=== PATIENT | female | born 1975 | race Caucasian/White ===

== ENCOUNTER 2018-03-30 19:22 | Emergency (ER) | payer MEDICAID ==
[~2018-03-30] VITALS: Ht 170.2 cm; Wt 68.0 kg
[~2018-03-30 19:22] MED LIST: DIAZ5TAB PO; HYDR-565 PO; PANT20TA3 PO; TUMS
[2018-03-30] MEDS ORDERED: HYDROcodone/acetaminophen 5mg/325mg tablet PO ONE (21:00)
[2018-03-30] MEDS ORDERED: HYDR-569 PO (21:23)
[2018-03-30 21:38] VITALS: BP 125/89
== END 2018-03-30 21:41 | disposition home or self-care (01) ==
LOC: ER 19:22
DX: S93.401A Sprain of unspecified ligament of right ankle, initial encounter (principal); G43.909 Migraine, unspecified, not intractable, without status migrainosus; G89.29 Other chronic pain; Z88.2 Allergy status to sulfonamides; Z88.6 Allergy status to analgesic agent; Z88.5 Allergy status to narcotic agent; X50.1XXA Overexertion from prolonged static or awkward postures, initial encounter; Y93.89 Activity, other specified; Y92.89 Other specified places as the place of occurrence of the external cause; Y99.8 Other external cause status
CPT/HCPCS: 29515; 73590; 73610; 99284

== ENCOUNTER 2018-04-05 14:44 | Outpatient (CLI) | payer MEDICAID ==
[~2018-04-05 14:44] MED LIST changes: +HYDR-569 PO
[2018-04-05 14:47] VITALS: BP 108/69
== END 2018-04-05 16:01 | disposition home or self-care (01) ==
LOC: ORTHO 14:44
PROVIDERS: ATTEND Nurse Practitioner Family
DX: S93.491A Sprain of other ligament of right ankle, initial encounter (principal); M79.89 Other specified soft tissue disorders; Z88.2 Allergy status to sulfonamides; Z88.5 Allergy status to narcotic agent; Z88.8 Allergy status to other drugs, medicaments and biological substances; Z90.710 Acquired absence of both cervix and uterus; X58.XXXA Exposure to other specified factors, initial encounter; Y93.89 Activity, other specified; Y92.89 Other specified places as the place of occurrence of the external cause; Y99.8 Other external cause status
CPT/HCPCS: 73610; 73630; 99213; L4360

== ENCOUNTER 2018-04-29 11:10 | Outpatient (CLI) | payer MEDICAID ==
[2018-04-29 11:12] VITALS: BP 127/78
== END 2018-04-29 11:50 | disposition home or self-care (01) ==
LOC: ORTHO 11:10
PROVIDERS: ATTEND Nurse Practitioner Family
DX: S93.491D Sprain of other ligament of right ankle, subsequent encounter (principal); M79.89 Other specified soft tissue disorders; Z88.5 Allergy status to narcotic agent; Z88.2 Allergy status to sulfonamides; Z88.8 Allergy status to other drugs, medicaments and biological substances; Z90.711 Acquired absence of uterus with remaining cervical stump; X58.XXXD Exposure to other specified factors, subsequent encounter
CPT/HCPCS: 73610

== ENCOUNTER 2018-05-23 11:08 | Outpatient (CLI) | payer MEDICAID ==
[2018-05-23 11:07] VITALS: BP 106/69
[~2018-05-23 11:08] MED LIST changes: +HYDR-4353 PO; +HYDR-4383 PO; -HYDR-565 PO; -HYDR-569 PO
== END 2018-05-23 11:50 | disposition home or self-care (01) ==
LOC: ORTHO 11:08
PROVIDERS: ATTEND Nurse Practitioner Family
DX: S93.491D Sprain of other ligament of right ankle, subsequent encounter (principal); Z88.2 Allergy status to sulfonamides; Z88.5 Allergy status to narcotic agent; Z88.8 Allergy status to other drugs, medicaments and biological substances; Z90.711 Acquired absence of uterus with remaining cervical stump; X58.XXXD Exposure to other specified factors, subsequent encounter
CPT/HCPCS: 73610

== ENCOUNTER 2018-06-21 14:13 | Outpatient (CLI) | payer MEDICAID ==
[2018-06-21 14:07] VITALS: BP 114/68
== END 2018-06-21 15:37 | disposition home or self-care (01) ==
LOC: ORTHO 14:13
PROVIDERS: ATTEND Nurse Practitioner Family
DX: S93.411D Sprain of calcaneofibular ligament of right ankle, subsequent encounter (principal); Z90.711 Acquired absence of uterus with remaining cervical stump; Z98.890 Other specified postprocedural states; Z88.2 Allergy status to sulfonamides; Z88.6 Allergy status to analgesic agent; X58.XXXD Exposure to other specified factors, subsequent encounter
CPT/HCPCS: 99213

== ENCOUNTER 2018-08-02 13:15 | Outpatient (CLI) | payer MEDICAID ==
[2018-08-02 13:14] VITALS: BP 102/63
== END 2018-08-02 14:05 | disposition home or self-care (01) ==
LOC: ORTHO 13:15
PROVIDERS: ATTEND Nurse Practitioner Family
DX: S93.411D Sprain of calcaneofibular ligament of right ankle, subsequent encounter (principal); Z88.2 Allergy status to sulfonamides; Z88.5 Allergy status to narcotic agent; X58.XXXD Exposure to other specified factors, subsequent encounter
CPT/HCPCS: 99213

== ENCOUNTER 2018-08-30 13:36 | Outpatient (CLI) | payer MEDICAID ==
[2018-08-30 13:28] VITALS: BP 129/79
== END 2018-08-30 14:32 | disposition home or self-care (01) ==
LOC: ORTHO 13:36
PROVIDERS: ATTEND Nurse Practitioner Family
DX: S93.411D Sprain of calcaneofibular ligament of right ankle, subsequent encounter (principal); Z88.2 Allergy status to sulfonamides; Z88.5 Allergy status to narcotic agent; Z88.8 Allergy status to other drugs, medicaments and biological substances; X58.XXXD Exposure to other specified factors, subsequent encounter
CPT/HCPCS: 99213

== ENCOUNTER → 2018-09-27 | Outpatient (CLI) | payer MEDICAID ==
[2018-09-27 13:34] VITALS: BP 112/81
== END | disposition home or self-care (01) ==
LOC: ORTHO 13:21
PROVIDERS: ATTEND Nurse Practitioner Family
DX: S93.411D Sprain of calcaneofibular ligament of right ankle, subsequent encounter (principal); Z98.890 Other specified postprocedural states; Z88.2 Allergy status to sulfonamides; Z88.5 Allergy status to narcotic agent; Z88.6 Allergy status to analgesic agent; X50.1XXD Overexertion from prolonged static or awkward postures, subsequent encounter
CPT/HCPCS: 99213

== ENCOUNTER 2024-12-29 08:22 | Day surgery (SDC) | payer MEDICAID ==
[2024-12-21 14:46] LABS: BASOPHILS # (AUTO) 0.1 X10'3 (0-0.2); BASOPHILS % (AUTO) 0.5 % (0-1); EOSINOPHILS # (AUTO) 0.2 X10'3 (0-0.9); EOSINOPHILS % (AUTO) 1.5 % (0-6); LYMPHOCYTES # (AUTO) 1.6 X10'3 (1.1-4.8); LYMPHOCYTES % (AUTO) 15.2 % (21-51); MEAN CORPUSCULAR HEMOGLOBIN 29.1 PG (27.0-31.0); MEAN CORPUSCULAR HGB CONC 34.4 g/dL (33.0-36.5); MEAN CORPUSCULAR VOLUME 84.6 FL (78-98); MEAN PLATELET VOLUME 8.8 FL (7.4-10.4); MONOCYTES # (AUTO) 0.4 X10'3 (0-0.9); MONOCYTES % (AUTO) 4.2 % (2-12); NEUTROPHILS # (AUTO) 8.2 X10'3 (1.8-7.7); NEUTROPHILS % (AUTO) 78.6 % (42-75); PRE OP HEMATOCRIT 41.4 % (35.0-45.0); PRE OP HEMOGLOBIN 14.3 g/dL (12.0-16.0); PRE OP PLATELET COUNT 255 X10'3 (140-440); PRE OP WHITE BLOOD COUNT 10.5 10'3 (4.8-10.8); RED BLOOD COUNT 4.89 X10'6 (4.20-5.60); RED CELL DISTRIBUTION WIDTH 14.7 % (11.5-14.5)
--- NOTE | 2024-12-21 14:48 | ELECTROCARDIOGRAPH REPORT ---
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 JAN Russo Measurements Intervals [place] Rate: 75 P: 52 WA: 130 QRS: 51 QRSD: 94 T: 31 QT: 469 QTc: 524 Interpretive Statements Sinus rhythm Probable left atrial enlargement Low voltage, precordial leads Prolonged QT interval Electronically Signed On 12-21-2024 17:24:[address] JAN Russo Please click the below link to view image of tracing.
[2024-12-21 15:01] LABS: PRE OP PROTIME 10.3 SECONDS (9.0-12.0)
[2024-12-21 15:06] LABS: ALBUMIN 3.4 G/DL (3.4-5.0); ALKALINE PHOSPHATASE 93 IU/L (46-116); BLOOD UREA NITROGEN 13 MG/DL (7-18); BUN/CREATININE RATIO 19.7 (10.0-20.0); CALCIUM 8.7 MG/DL (8.5-10.1); CHLORIDE 107 MMOL/L (99-107); CREATININE 0.66 MG/DL (0.40-0.90); PRE OP ALT 24 U/L (30-65); PRE OP ANION GAP 6 (8-16); PRE OP AST 8 U/L (10-37); PRE OP BILIRUB, TOTAL 0.2 MG/DL (0.0-1.0); PRE OP GLUCOSE 126 MG/DL (70-104); PRE OP SODIUM 145 MMOL/L (135-145); TOTAL CARBON DIOXIDE 31.8 MMOL/L (24-32); TOTAL PROTEIN 6.9 G/DL (6.4-8.2); eGFR > 90 ML/MIN
[~2024-12-29] VITALS: Ht 170.2 cm; Wt 79.3 kg
[2024-12-29] VITALS (10 sets, daily range): BP systolic 127–155; BP diastolic 53–100; PULSE 67–104; RESP 12–16; TEMP 98.9; O2SAT 93–100
[2024-12-29] MEDS: DOCUMENT DATE & TIME OF BETA-BLOCKER PO ONE (05:30)
[2024-12-29] MEDS: ceFAZolin 2gm in dextrose, iso 50 ML IV ONE (05:30)
[~2024-12-29 08:22] MED LIST changes: +ATOG10TA PO; -DIAZ5TAB PO; -HYDR-4383 PO; -PANT20TA3 PO; +PROP10TA10 PO; -TUMS
[2024-12-29] MEDS ORDERED: LIDOcaine 1% 30ml preserv. free vial ONE (08:41)
[2024-12-29] MEDS ORDERED: BUPIVAcaine 2.5mg/ml inj 50ml vial (contains preservative) ONE (08:41)
[2024-12-29] MEDS ORDERED: morphine 4 MG/ML inj SYRINge IV PRN (08:55)
[2024-12-29] MEDS ORDERED: fentaNYL/PF 50MCG/1 ML 2ML syringe IV PRN (08:55)
[2024-12-29] MEDS ORDERED: ondansetron/PF 4mg/2ml inj IV PRN (08:55)
[2024-12-29] MEDS ORDERED: morphine 2 MG/ML inj. syringe IV PRN (08:55)
[2024-12-29] MEDS ORDERED: ringers solution, lacted 1,000 ML IV SCH (08:55)
[2024-12-29] MEDS ORDERED: labetalol 20mg/4ml (5mg/ml) syringe IV PRN (08:55)
[2024-12-29] MEDS ORDERED: hydrALAZINE 20mg/ml inj. IV PRN (08:55)
[2024-12-29] MEDS: ringers solution, lacted 1,000 ML IV SCH (09:22)
[2024-12-29] MEDS: famotidine 20mg tablet PO ONE (09:22)
[2024-12-29] MEDS ORDERED: fentaNYL/PF 50MCG/1 ML 2ML syringe ONE ×2 (10:17→10:44)
[2024-12-29] MEDS ORDERED: midazolam 1 mg/ML 2ml injection ONE (10:17)
[2024-12-29] MEDS ORDERED: LIDOcaine 1%/PF 5ML 10 MG/ML VIAL ONE (10:18)
[2024-12-29] MEDS ORDERED: propofol inj 20 ML IV ONE (10:18)
[2024-12-29] MEDS ORDERED: ondansetron/PF 4mg/2ml inj ONE (10:19)
[2024-12-29] MEDS ORDERED: dexamethasone sod phosphate 4mg/ml inj. ONE (10:19)
[2024-12-29] MEDS ORDERED: acetaminophen 1,000mg/100ml IV 100 ML IV ONE (10:19)
--- NOTE | 2024-12-29 11:36 | OPERATIVE REPORT ---
Operative Report Providers to ~ Date of Procedure: December 29, 2024 Pre-Operative Diagnosis: Imaged finding, right upper outer quadrant Post-Operative Diagnosis SAME as PRE-Op Procedure Performed Segmental mastectomy after ultrasound marking Surgeon: Rick Street MD Grease Remover None Anesthesiologist: Cristhian De La Garza Type of Anesthesia: General Findings: Grossly normal tissue Complications None Prosthetics\Implants used: None Estimated Blood Loss: Less than 25 cc Specimen Removed: Right upper outer quadrant image finding Description of Procedure: The patient was identified in the supine position with her right arm extended. She was prepped and draped in the usual sterile fashion. Prior to surgery the patient underwent ultrasound marking of her complex cyst in my office prior to surgery. Preoperative antibiotics have been administered within 1 hour prior to the patient's incision. SCDs have been applied. A curvilinear incision was mad e and flaps were raised towards and away from the nipple. The underlying tissue was excised in a segmental fashion down to fascia with the LigaSure. The specimen was oriented and sent for pathologic study in formalin. The wound is thoroughly irrigated. Hemostasis was obtained. The incision was closed with interrupted 3-0 Vicryl pop-off for deep layers and a running 3-0 Stratafix suture for skin. The incision was dressed with Dermabond and Steri-Strips. The patient was taken to the PAR in stable condition. Estimated blood loss less than 25 cc. Final sponge and needle count was correct x2 Counts repoted as correct: Yes RICK STREET MD December 29, 2024 11:35
[2024-12-29] MEDS: fentaNYL/PF 50MCG/1 ML 2ML syringe IV PRN (11:44)
== END 2024-12-29 12:48 | disposition home or self-care (01) ==
LOC: PAS 08:22
PROVIDERS: ATTEND Surgery
DX: R92.8 Other abnormal and inconclusive findings on diagnostic imaging of breast (principal); N64.4 Mastodynia; N60.11 Diffuse cystic mastopathy of right breast; N60.12 Diffuse cystic mastopathy of left breast; G43.909 Migraine, unspecified, not intractable, without status migrainosus; F41.9 Anxiety disorder, unspecified; K21.9 Gastro-esophageal reflux disease without esophagitis; G40.909 Epilepsy, unspecified, not intractable, without status epilepticus; Z88.2 Allergy status to sulfonamides; Z79.899 Other long term (current) drug therapy; Z79.01 Long term (current) use of anticoagulants; Z90.710 Acquired absence of both cervix and uterus
CPT/HCPCS: 19120; 36415; 80053; 82948; 85025; 85610; 85730; 93005; J0131; J1100; J2003; J2250; J2405; J2704; J3010; J3490; J7030; J7120; Z7506; Z7508; Z7512; A4215; A4618; A6449; A7000